=== PATIENT | female | born 1985 | race Caucasian/White ===

== ENCOUNTER 2018-03-09 10:47 | Day surgery (SDC) | payer OTHER ==
[~2018-03-09] VITALS: Ht 162.6 cm; Wt 112.2 kg
[~2018-03-09 10:47] MED LIST: BUSP5 PO; Cipro500 MG PO; METF500 PO; METF500C PO; Mirena1 EACH; SERT100; [UNRECOGNIZED DRUG - OTHER]
== END 2018-03-09 13:21 | disposition home or self-care (01) ==
LOC: ORSCSDS 10:47
PROVIDERS: Obstetrics & Gynecology
PROC: 0U574ZZ Destruction of Bilateral Fallopian Tubes, Percutaneous Endoscopic Approach (ICD-10-PCS; principal; 2018-03-09 12:00)
PROC: 0UPD7HZ Removal of Contraceptive Device from Uterus and Cervix, Via Natural or Artificial Opening (ICD-10-PCS; principal; 2018-03-09 12:00)
DX: Z30.2 Encounter for sterilization (principal); E28.2 Polycystic ovarian syndrome; Z87.891 Personal history of nicotine dependence; E16.1 Other hypoglycemia
CPT/HCPCS: J0171; J1100; J2250; J2405; J2710; J3010; J7120

== ENCOUNTER → 2019-02-28 | Outpatient (CLI) | payer BC, OTHER ==
[~2019-02-28] MED LIST changes: +Norco 5-325 Ta1 EACH PO; +Zofran4 MG PO
[2019-03-01 16:53] LABS: U Amphetamine Screen Not Detected; U Barbituate Screen Not Detected; U Benzodiazapine Screen Not Detected; U Cannabinoids Screen Not Detected; U Cocaine Screen Not Detected; U Methadone Screen Not Detected; U Methamphetamine Screen Not Detected; U Opiates Screen Not Detected; U Phencyclidine Screen Not Detected
[2019-03-01 16:54] LABS: U Buprenorphine Screen Not Detected; U Oxycodone Screen Not Detected; U Propoxyphene Screen Not Detected
== END | disposition home or self-care (01) ==
LOC: LAB SHORT 15:47 → LAB 15:47 → LAB SHORT 03-01 15:47
PROVIDERS: Family Medicine
DX: Z51.81 Encounter for therapeutic drug level monitoring (principal); Z79.899 Other long term (current) drug therapy

== ENCOUNTER 2019-06-12 05:09 | Emergency (ER) | payer BC, OTHER ==
[~2019-06-12] VITALS: Ht 162.6 cm; Wt 99.8 kg
[2019-06-12] MEDS ORDERED: QUET25 PO (05:30)
[2019-06-12] MEDS ORDERED: Amphetamine Sal20 MG PO (05:30)
[2019-06-12 05:48] LABS: Source, Urine Clean Catch
[2019-06-12 05:57] LABS: Bilirubin, Urine Neg (Neg); Blood, Urine 5+ (Neg); Glucose Qualitative, Urine Neg (Neg); Ketones, Urine Neg (Neg); Leukocyte Esterase, Urine 2+ (Neg); Nitrite, Urine Neg (Neg); Protein, Urine 2+ (Neg); Urobilinogen, Urine NORM (Normal)
[2019-06-12 05:59] LABS: BASOPHILS ABSOLUTE AUTO 0.07 K/mm3 (0.00-0.23); BASOPHILS PERCENT AUTO 1 % (0-2); EOSINOPHILS ABSOLUTE AUTO 0.03 K/mm3 (0.00-0.68); EOSINOPHILS PERCENT AUTO 0 % (0-6); Hematocrit 39.4 % (33.0-51.0); Hemoglobin 13.3 g/dL (11.5-16.0); IMMATURE GRAN ABSOLUTE AUTO 0.05 K/mm3 (0.00-0.10); IMMATURE GRAN PERCENT AUTO 0 % (0-1); LYMPHOCYTES ABSOLUTE AUTO 1.57 K/mm3 (0.84-5.20); LYMPHOCYTES PERCENT AUTO 11 % (21-46); MONOCYTES ABSOLUTE AUTO 0.59 K/mm3 (0.16-1.47); MONOCYTES PERCENT AUTO 4 % (4-13); Mean Corpuscular HGB Conc 33.8 g/dL (31.5-36.5); Mean Corpuscular Volume 86 fL (80-100); Mean Platelet Volume 10.2 fL (9.1-12.4); NEUTROPHILS ABSOLUTE AUTO 12.58 K/mm3 (1.96-9.15); NEUTROPHILS PERCENT AUTO 85 % (41-73); Platelet Count 322 K/mm3 (150-400); RDW Coefficient Variation 12.6 % (11.7-14.2); RDW Standard Deviation 38.6 fL (35.1-46.3); Red Blood Cell Count 4.59 M/mm3 (3.80-5.20); White Blood Cell Count 14.89 K/mm3 (4.00-11.30)
[2019-06-12 06:08] LABS: Appearance, Urine Hazy (Clear); Color, Urine Yellow (P-Yellow)
[2019-06-12 06:10] LABS: Red Blood Cells, Urine 25-50 /hpf (0-2)
[2019-06-12 06:12] LABS: Bacteria Rare /hpf; Squamous Epithelial Cells Few /hpf (Few)
[2019-06-12 06:13] LABS: Calcium Oxalate Crystals Rare /hpf
[2019-06-12 06:17] LABS: Alanine Aminotransfer (ALT/SGP 26 U/L (12-78); Alk Phos 71 U/L (50-136); Anion Gap 8 mmol/L (6-16); Aspartate Aminotrans (AST/SGOT 13 U/L (12-37); Bilirubin, Total 0.7 mg/dL (0.1-1.0); Blood Urea Nitrogen 8 mg/dL (8-24); Bun/Creatinine Ratio 9.7 (12.0-20.0); CO2, Blood 21 mmol/L (21-32); Calcium, Blood 8.8 mg/dL (8.5-10.1); Chloride, Blood 108 mmol/L (98-108); Creatinine, Blood 0.83 mg/dL (0.40-1.00); Glomerular Filtration Rate >60 (60-); Glucose, Blood 129 mg/dL (70-99); Potassium, Blood 3.8 mmol/L (3.5-5.5); Sodium, Blood 137 mmol/L (136-145)
== END 2019-06-12 10:35 | disposition short-term general hospital (02) ==
LOC: ER 05:09
PROVIDERS: Emergency Medicine
DX: N13.2 Hydronephrosis with renal and ureteral calculous obstruction (principal); Z91.018 Allergy to other foods; Z79.899 Other long term (current) drug therapy; Z79.84 Long term (current) use of oral hypoglycemic drugs; Z87.891 Personal history of nicotine dependence
CPT/HCPCS: 74176; 80053; 81001; 81025; 83605; 85025; 87086; 96361; 96365; 96375; 99285-25; J0696; J1885; J2270; J2405; J7030

== ENCOUNTER → 2019-11-20 | Outpatient (CLI) | payer BC ==
[~2019-11-20] MED LIST changes: +Amphetamine Sal20 MG PO; +QUET25 PO
[2019-11-20 11:52] LABS: Bilirubin, Urine Neg (Neg); Blood, Urine 4+ (Neg); Glucose Qualitative, Urine Neg (Neg); Ketones, Urine 1+ (Neg); Leukocyte Esterase, Urine 3+ (Neg); Nitrite, Urine Neg (Neg); Protein, Urine 2+ (Neg); Urobilinogen, Urine NORM (Normal)
[2019-11-20 12:06] LABS: Appearance, Urine Hazy (Clear); Bacteria Mod /hpf; Color, Urine Yellow (P-Yellow); Red Blood Cells, Urine TNTC /hpf (0-2); Source, Urine Clean Catch; Squamous Epithelial Cells Many /hpf (Few); White Blood Cells, Urine TNTC /hpf (0-5)
[2019-11-20 12:07] LABS: Mucus Light (0-Heavy)
== END | disposition home or self-care (01) ==
LOC: LAB SHORT 11:35 → LAB 11:35
PROVIDERS: Family Medicine
DX: N39.0 Urinary tract infection, site not specified (principal)
CPT/HCPCS: 81001; 87077; 87086; 87186

== ENCOUNTER → 2020-01-18 | Outpatient (CLI) | payer BC ==
[2020-01-18 08:26] LABS: Source, Urine Clean Catch
[2020-01-18 08:51] LABS: Bilirubin, Urine Neg (Neg); Blood, Urine 3+ (Neg); Glucose Qualitative, Urine Neg (Neg); Ketones, Urine Neg (Neg); Leukocyte Esterase, Urine 2+ (Neg); Nitrite, Urine Neg (Neg); Protein, Urine 2+ (Neg); Specific Gravity, Urine 1.015 (1.003-1.022); Urobilinogen, Urine NORM (Normal)
[2020-01-18 08:58] LABS: Appearance, Urine Clear (Clear); Color, Urine Yellow (P-Yellow)
[2020-01-18 08:59] LABS: Squamous Epithelial Cells Mod /hpf (Few)
[2020-01-18 09:01] LABS: Bacteria Few /hpf; Mucus Light (0-Heavy)
== END ==
LOC: OLS 08:24 → LAB SHORT 08:24
PROVIDERS: Family Medicine
DX: N20.0 Calculus of kidney (principal); N39.0 Urinary tract infection, site not specified
CPT/HCPCS: 81001; 87086

== ENCOUNTER → 2020-05-20 | Outpatient (CLI) | payer BC ==
[2020-05-20 11:40] LABS: Source, Urine Clean Catch
[2020-05-20 12:21] LABS: Bilirubin, Urine Neg (Neg); Blood, Urine 5+ (Neg); Glucose Qualitative, Urine Neg (Neg); Ketones, Urine Neg (Neg); Leukocyte Esterase, Urine 3+ (Neg); Nitrite, Urine Neg (Neg); Protein, Urine 2+ (Neg); Specific Gravity, Urine 1.025 (1.003-1.022); Urobilinogen, Urine NORM (Normal)
[2020-05-20 12:24] LABS: Appearance, Urine Hazy (Clear); Color, Urine Yellow (P-Yellow)
[2020-05-20 12:26] LABS: Bacteria Many /hpf; Red Blood Cells, Urine TNTC /hpf (0-2); Squamous Epithelial Cells Mod /hpf (Few); White Blood Cells, Urine TNTC /hpf (0-5)
== END | disposition home or self-care (01) ==
LOC: LAB SHORT 11:38 → LAB 11:38 → LAB FUT 01-22 13:10
PROVIDERS: Family Medicine
DX: N39.0 Urinary tract infection, site not specified (principal)
CPT/HCPCS: 81001; 87077; 87086; 87186

== ENCOUNTER → 2020-10-07 | Outpatient (CLI) | payer BC ==
[2020-10-07 19:29] LABS: U Amphetamine Screen DETECTED; U Barbituate Screen Not Detected; U Benzodiazapine Screen Not Detected; U Buprenorphine Screen Not Detected; U Cannabinoids Screen Not Detected; U Cocaine Screen Not Detected; U Methadone Screen Not Detected; U Methamphetamine Screen Not Detected; U Opiates Screen Not Detected; U Oxycodone Screen Not Detected; U Phencyclidine Screen Not Detected; U Propoxyphene Screen Not Detected
== END | disposition home or self-care (01) ==
LOC: LAB SHORT 17:43 → LAB 17:43
PROVIDERS: Family Medicine
DX: Z51.81 Encounter for therapeutic drug level monitoring (principal); Z79.891 Long term (current) use of opiate analgesic

== ENCOUNTER → 2021-04-07 | Outpatient (CLI) | payer BC, OTHER ==
[2021-04-07 13:39] LABS: Source, Urine Clean Catch
[2021-04-07 14:18] LABS: Bilirubin, Urine Neg (Neg); Blood, Urine 1+ (Neg); Glucose Qualitative, Urine Neg (Neg); Ketones, Urine Neg (Neg); Leukocyte Esterase, Urine 3+ (Neg); Nitrite, Urine Neg (Neg); Protein, Urine Neg (Neg); Specific Gravity, Urine 1.015 (1.003-1.022); Urobilinogen, Urine NORM (Normal); pH, Urine 6.5 (5.0-8.0)
[2021-04-07 14:37] LABS: Appearance, Urine Hazy (Clear); Color, Urine Pale Yellow (P-Yellow)
[2021-04-07 14:38] LABS: Bacteria Many /hpf; Red Blood Cells, Urine 0-2 /hpf (0-2); Squamous Epithelial Cells Few /hpf (Few)
== END | disposition home or self-care (01) ==
LOC: LAB FUT 12-18 07:25 → LAB 13:37 → LAB SHORT 13:37
PROVIDERS: Family Medicine
DX: N15.9 Renal tubulo-interstitial disease, unspecified (principal)
CPT/HCPCS: 81001; 87077; 87086; 87186

== ENCOUNTER → 2021-05-21 | Outpatient (CLI) | payer BC, OTHER ==
[2021-05-21 09:59] LABS: Source, Urine Clean Catch
[2021-05-21 10:38] LABS: Appearance, Urine Clear (Clear); Bilirubin, Urine Neg (Neg); Blood, Urine 2+ (Neg); Color, Urine Yellow (P-Yellow); Glucose Qualitative, Urine Neg (Neg); Ketones, Urine Neg (Neg); Leukocyte Esterase, Urine 1+ (Neg); Nitrite, Urine Neg (Neg); Protein, Urine Neg (Neg); Urobilinogen, Urine NORM (Normal)
[2021-05-21 11:00] LABS: Squamous Epithelial Cells Mod /hpf (Few)
[2021-05-21 11:01] LABS: Bacteria Few /hpf
== END | disposition home or self-care (01) ==
LOC: LAB SHORT 09:56 → LAB 09:56
PROVIDERS: Family Medicine
DX: N39.0 Urinary tract infection, site not specified (principal)
CPT/HCPCS: 81001; 87086

== ENCOUNTER → 2021-08-07 | Outpatient (CLI) | payer BC, OTHER ==
[2021-08-07 12:43] LABS: Source, Urine Clean Catch
[2021-08-07 13:41] LABS: Appearance, Urine Clear (Clear); Bilirubin, Urine Neg (Neg); Blood, Urine 2+ (Neg); Color, Urine Yellow (P-Yellow); Glucose Qualitative, Urine Neg (Neg); Ketones, Urine Neg (Neg); Leukocyte Esterase, Urine 3+ (Neg); Nitrite, Urine Neg (Neg); Protein, Urine 1+ (Neg); Specific Gravity, Urine 1.015 (1.003-1.022); Urobilinogen, Urine NORM (Normal)
[2021-08-07 14:16] LABS: Bacteria Mod /hpf; Mucus Light (0-Heavy)
[2021-08-07 14:17] LABS: Amorphous Mod (0-Heavy); Squamous Epithelial Cells Mod /hpf (Few); Trichomonas Few /hpf
== END | disposition home or self-care (01) ==
LOC: LAB 12:40 → LAB SHORT 12:40
PROVIDERS: Family Medicine
DX: N39.0 Urinary tract infection, site not specified (principal)
CPT/HCPCS: 81001; 87086

== ENCOUNTER → 2021-11-09 | Outpatient (CLI) | payer BC, OTHER ==
[~2021-11-09] MED LIST changes: +Bactrim Ds Tab1 EACH PO; +OXYC5 PO
== END | disposition home or self-care (01) ==
LOC: LAB SHORT 07:27 → LAB 07:27
DX: N20.0 Calculus of kidney (principal)
CPT/HCPCS: 81050

== ENCOUNTER → 2022-02-10 | Outpatient (CLI) | payer BC, OTHER ==
[2022-02-10 18:09] LABS: U Amphetamine Screen Not Detected; U Barbituate Screen Not Detected; U Benzodiazapine Screen Not Detected; U Buprenorphine Screen Not Detected; U Cannabinoids Screen Not Detected; U Cocaine Screen Not Detected; U Methadone Screen Not Detected; U Methamphetamine Screen Not Detected; U Opiates Screen Not Detected; U Oxycodone Screen Not Detected; U Phencyclidine Screen Not Detected; U Propoxyphene Screen Not Detected
== END | disposition home or self-care (01) ==
LOC: LAB SHORT 13:21
PROVIDERS: Family Medicine
DX: Z51.81 Encounter for therapeutic drug level monitoring (principal); Z79.891 Long term (current) use of opiate analgesic

== ENCOUNTER 2023-07-18 17:58 | Inpatient (IN) | payer OTHER ==
[~2023-07-18] VITALS: Ht 160 cm; Wt 111.2 kg
[2023-07-18 18:19] LABS: Source, Urine Clean Catch
[2023-07-18 18:23] LABS: Appearance, Urine Cloudy (Clear); Bilirubin, Urine Neg (Neg); Blood, Urine 4+ (Neg); Color, Urine Yellow (P-Yellow); Glucose Qualitative, Urine Neg (Neg); Ketones, Urine Neg (Neg); Leukocyte Esterase, Urine 3+ (Neg); Nitrite, Urine Neg (Neg); Protein, Urine 3+ (Neg); Urobilinogen, Urine NORM (Normal)
[2023-07-18 18:35] LABS: White Blood Cells, Urine TNTC /hpf (0-5)
[2023-07-18 18:37] LABS: Squamous Epithelial Cells Not Seen /hpf (Few)
[2023-07-18 18:38] LABS: Bacteria Few /hpf
[2023-07-18 18:41] LABS: BASOPHILS ABSOLUTE AUTO 0.06 K/mm3 (0.00-0.23); BASOPHILS PERCENT AUTO 1 % (0-2); EOSINOPHILS ABSOLUTE AUTO 0.16 K/mm3 (0.00-0.68); EOSINOPHILS PERCENT AUTO 1 % (0-6); Hematocrit 37.3 % (33.0-51.0); Hemoglobin 13.3 g/dL (11.5-16.0); IMMATURE GRAN ABSOLUTE AUTO 0.03 K/mm3 (0.00-0.10); IMMATURE GRAN PERCENT AUTO 0 % (0-1); LYMPHOCYTES PERCENT AUTO 24 % (21-46); MONOCYTES ABSOLUTE AUTO 0.67 K/mm3 (0.16-1.47); MONOCYTES PERCENT AUTO 5 % (4-13); Mean Corpuscular HGB 30.4 pg (26.0-34.0); Mean Corpuscular HGB Conc 35.7 g/dL (31.5-36.5); Mean Corpuscular Volume 85 fL (80-100); Mean Platelet Volume 10.2 fL (9.1-12.4); NEUTROPHILS ABSOLUTE AUTO 9.21 K/mm3 (1.96-9.15); NEUTROPHILS PERCENT AUTO 69 % (41-73); Platelet Count 259 K/mm3 (150-400); RDW Coefficient Variation 11.5 % (11.7-14.2); RDW Standard Deviation 35.3 fL (35.1-46.3); Red Blood Cell Count 4.37 M/mm3 (3.80-5.20); White Blood Cell Count 13.33 K/mm3 (4.00-11.30)
[2023-07-18 19:04] LABS: Albumin, Blood 3.5 g/dL (3.4-5.0); Albumin/Globulin Ratio 0.9 (0.8-1.8); Bilirubin, Total 0.5 mg/dL (0.1-1.0); Bun/Creatinine Ratio 14.9 (12.0-20.0); Calcium, Blood 9.3 mg/dL (8.5-10.1); Creatinine, Blood 0.61 mg/dL (0.40-1.00); Globulin, Blood 3.9 g/dL (2.2-4.0); Potassium, Blood 3.8 mmol/L (3.5-5.5); Total Protein, Blood 7.4 g/dL (6.4-8.2)
[2023-07-18] MEDS ORDERED: DASETTA 1-35-21 EACH PO (19:06)
[2023-07-18 21:47] LABS: Influenza A, PCR NEGATIVE (NEGATIVE); Influenza B, PCR NEGATIVE (NEGATIVE); Resp Syncytial Virus, PCR NEGATIVE (NEGATIVE); SARS-Cov-2 (COVID-19) PCR, MMC NEGATIVE (NEGATIVE)
[2023-07-18 23:15] VITALS: BP 138/96
--- NOTE | 2023-07-18 23:47 | NUR ---
ADMIT PT ADMITTED. ORIENTED TO ROOM. CALL LIGHT IN REACH. DENIES SMOKING OR HAVING IGNITION RISK. IV FLUIDS STARTED. DENIES NEED FOR PAIN MEDS AT THIS TIME. PT ENCOURAGED TO CALL STAFF AFTER USING THE BATHROOM TO MEARURE URINE OUTPUT. DENIES OTHER NEEDS AT THIS TIME. FAX SENT TO [facility] [place]. PT INFORMED SHE IS NPO AT MIDNIGHT.
[2023-07-19] VITALS (9 sets, daily range): BP systolic 105–168; BP diastolic 56–95
[2023-07-19 05:15] LABS: BASOPHILS ABSOLUTE AUTO 0.05 K/mm3 (0.00-0.23); BASOPHILS PERCENT AUTO 1 % (0-2); EOSINOPHILS PERCENT AUTO 1 % (0-6); Hematocrit 34.3 % (33.0-51.0); IMMATURE GRAN ABSOLUTE AUTO 0.02 K/mm3 (0.00-0.10); IMMATURE GRAN PERCENT AUTO 0 % (0-1); LYMPHOCYTES ABSOLUTE AUTO 2.89 K/mm3 (0.84-5.20); LYMPHOCYTES PERCENT AUTO 36 % (21-46); MONOCYTES ABSOLUTE AUTO 0.48 K/mm3 (0.16-1.47); MONOCYTES PERCENT AUTO 6 % (4-13); Mean Corpuscular HGB 30.3 pg (26.0-34.0); Mean Corpuscular Volume 87 fL (80-100); Mean Platelet Volume 10.4 fL (9.1-12.4); NEUTROPHILS ABSOLUTE AUTO 4.61 K/mm3 (1.96-9.15); NEUTROPHILS PERCENT AUTO 57 % (41-73); Platelet Count 239 K/mm3 (150-400); RDW Coefficient Variation 11.6 % (11.7-14.2); RDW Standard Deviation 36.8 fL (35.1-46.3); Red Blood Cell Count 3.96 M/mm3 (3.80-5.20); White Blood Cell Count 8.15 K/mm3 (4.00-11.30)
[2023-07-19 05:36] LABS: Albumin, Blood 3.3 g/dL (3.4-5.0); Albumin/Globulin Ratio 0.9 (0.8-1.8); Bilirubin, Total 0.7 mg/dL (0.1-1.0); Bun/Creatinine Ratio 11.4 (12.0-20.0); Calcium, Blood 8.4 mg/dL (8.5-10.1); Creatinine, Blood 0.7 mg/dL (0.40-1.00); Globulin, Blood 3.5 g/dL (2.2-4.0); Potassium, Blood 3.8 mmol/L (3.5-5.5); Total Protein, Blood 6.8 g/dL (6.4-8.2)
--- NOTE | 2023-07-19 06:09 | NUR ---
SHIFT SUMMARY ADMITTED OVERNIGHT. IV FLUIDS RUNNING X1 BAG. MEDICATED FOR PAIN ONCE SINCE ADMISSION WITH GOOD RELIEF DOWN TO 2/10 ON R FLANK. NPO SINCE MIDNIGHT FOR POSSIBLE PROCEDURE WITH DR. DOLAN TODAY FOR NEPHROSTOMY TUBE PLACEMENT. PTS UROLOGY IN [place] ALSO AWARE OF HOSPITALIZATION. [place] BED UNAVAILABLE AT THIS TIME, HOWEVER. NO OTHER ACUTE CHANGES IN ASSESSMENT AT THIS TIME. VS REVIEWED. CALL LIGHT IN REACH. DENIES OTHER NEEDS AT THIS TIMES. NO OTHER ACUTE CHANGES IN ASSESSMENT AT THIS TIME. VS REVIEWED. CALL LIGHT IN REACH. PT RESTING IN BED. DENIES OTHER NEEDS AT THIS TIME.
--- NOTE | 2023-07-20 04:32 | NUR ---
REPORT RECEIVED VERIFIED PT A/O AT BEDSIDE. C/O PAIN TO RIGHT SIDE WHICH I TREATED WITH TORADOL, PT STATED IT WORKED FOR A WHILE BUT WAS STILL HAVING PAIN SO I MEDICATED PER JAN. NAUSEA COVERED PER JAN, NO VOMITING. PT INDEPENDANT IN RM WILL CALL IF NEEDING ASSISTENCE. CONT MONITORING
[2023-07-20 05:04] VITALS: BP 147/94
[2023-07-20 05:42] LABS: BASOPHILS ABSOLUTE AUTO 0.03 K/mm3 (0.00-0.23); BASOPHILS PERCENT AUTO 0 % (0-2); EOSINOPHILS ABSOLUTE AUTO 0.13 K/mm3 (0.00-0.68); EOSINOPHILS PERCENT AUTO 2 % (0-6); Hematocrit 33.6 % (33.0-51.0); Hemoglobin 11.6 g/dL (11.5-16.0); IMMATURE GRAN ABSOLUTE AUTO 0.01 K/mm3 (0.00-0.10); IMMATURE GRAN PERCENT AUTO 0 % (0-1); LYMPHOCYTES ABSOLUTE AUTO 2.71 K/mm3 (0.84-5.20); LYMPHOCYTES PERCENT AUTO 35 % (21-46); MONOCYTES ABSOLUTE AUTO 0.46 K/mm3 (0.16-1.47); MONOCYTES PERCENT AUTO 6 % (4-13); Mean Corpuscular HGB 30.2 pg (26.0-34.0); Mean Corpuscular HGB Conc 34.5 g/dL (31.5-36.5); Mean Corpuscular Volume 88 fL (80-100); Mean Platelet Volume 10.4 fL (9.1-12.4); NEUTROPHILS ABSOLUTE AUTO 4.42 K/mm3 (1.96-9.15); NEUTROPHILS PERCENT AUTO 57 % (41-73); Platelet Count 232 K/mm3 (150-400); RDW Coefficient Variation 11.8 % (11.7-14.2); RDW Standard Deviation 37.4 fL (35.1-46.3); Red Blood Cell Count 3.84 M/mm3 (3.80-5.20); White Blood Cell Count 7.76 K/mm3 (4.00-11.30)
[2023-07-20 06:07] LABS: Albumin, Blood 3.1 g/dL (3.4-5.0); Anion Gap 5 mmol/L (6-16); Blood Urea Nitrogen 10 mg/dL (8-24); Bun/Creatinine Ratio 14.2 (12.0-20.0); CO2, Blood 24 mmol/L (21-32); Calcium, Blood 8.3 mg/dL (8.5-10.1); Chloride, Blood 110 mmol/L (98-108); Creatinine, Blood 0.71 mg/dL (0.40-1.00); Glomerular Filtration Rate 110 (60-); Glucose, Blood 91 mg/dL (70-99); Phosphorus, Blood 3.3 mg/dL (2.5-4.9); Potassium, Blood 4.3 mmol/L (3.5-5.5); Sodium, Blood 139 mmol/L (136-145)
[2023-07-20 07:18] VITALS: BP 122/63
--- NOTE | 2023-07-20 07:30 | NUR ---
ASSUMED CARE: PT RESTING IN BED WATCHING TV. SIGNIFICANT OTHER AT BEDSIDE. NEPHROSTOMY TO RIGHT FLANK SECURE. STATES TENDER AT TIMES. DENIES OTHER NEEDS OR CONCERNS AT THIS TIME.
--- NOTE | 2023-07-20 12:53 | NUR ---
DR POZO INSTRUCTED THIS RN TO CALL DR DOLAN TO FIND OUT DC PLANS. CALL TO CLINICAL RN MANAGER AND NURSE STATED SHE WOULD RELAY MESSAGE FOR HIM TO ADDRESS PT'S DC PLANS AFTER CURRENT PROCEDURE
--- NOTE | 2023-07-20 14:23 | NUR ---
CALL TO DR DOLAN'S CELL PHONE, MESSAGE LEFT ON VOICE MAIL.
--- NOTE | 2023-07-20 14:39 | NUR ---
REPORTED TO DR POZO THAT 2 ATTEMPTS HAVE BEEN MADE TO CONTACT DR DOLAN. DR OVALLES SHE SENT HIM A MESSAGE WELL. DR OVALLES WILL LIKELY DISCHARGE PT
[2023-07-20] MEDS ORDERED: CEPH500 PO (15:18)
[2023-07-20] MEDS ORDERED: ONDA4ODT MM (15:19)
[2023-07-20] MEDS ORDERED: OXYC5 PO (15:19)
[2023-07-20] MEDS ORDERED: LACT PO (15:19)
[2023-07-20 15:20] VITALS: BP 135/67
--- NOTE | 2023-07-20 15:49 | NUR ---
PT GIVEN INSTRUCTIONS REGARDING MEDICATIONS, FOLLOW UP APPOINTMENTS, AND SITE CARE OF NEPHROSTOMY TUBE UNTIL FOLLOW UP CAN OCCUR. PT IN MIDST OF GETTING CONFIRMED DATE WITH UROLOGY. IV DC'D WNL. DENIED FURTHER NEEDS OR CONCERNS. AMBULATORY UPON DISCHARGE.
== END 2023-07-20 15:46 | disposition home or self-care (01) | DRG 690 ==
LOC: ER 17:58 → MEDS 17:59
PROVIDERS: Emergency Medicine; Internal Medicine; Student in an Organized Health Care Education/Training Program; ADMIT Hospitalist
PROC: 0T763DZ Dilation of Right Ureter with Intraluminal Device, Percutaneous Approach (ICD-10-PCS; principal; 2023-07-19)
PROC: 0T9330Z Drainage of Right Kidney Pelvis with Drainage Device, Percutaneous Approach (ICD-10-PCS; 2023-07-19)
PROC: BT1D1ZZ Fluoroscopy of Right Kidney, Ureter and Bladder using Low Osmolar Contrast (ICD-10-PCS; 2023-07-19)
DX: N13.6 Pyonephrosis (principal); Z68.41 Body mass index [BMI] 40.0-44.9, adult; E66.9 Obesity, unspecified; B95.1 Streptococcus, group B, as the cause of diseases classified elsewhere; Z20.822 Contact with and (suspected) exposure to COVID-19; Z87.442 Personal history of urinary calculi; Z90.49 Acquired absence of other specified parts of digestive tract; Z87.891 Personal history of nicotine dependence; Z91.018 Allergy to other foods; Z79.891 Long term (current) use of opiate analgesic; Z79.899 Other long term (current) drug therapy; Z98.890 Other specified postprocedural states
CPT/HCPCS: 0241U; 36415; 50695; 74177; 76937; 80053; 80069; 81001; 81025; 83690; 85025; 87086; 87147; 96365-59; 96375; 99152; 99153; 99285-25; A9270; C1769; C1894; C2617; G0378; J0696; J1885; J2250; J2405; J3010; J7030; J7040; Q9967

== ENCOUNTER 2023-07-30 02:08 | Inpatient (IN) | payer OTHER ==
[~2023-07-30] VITALS: Ht 160 cm; Wt 110.1 kg
[~2023-07-30 02:08] MED LIST changes: +CEPH500 PO; +DASETTA 1-35-21 EACH PO; +LACT PO; +ONDA4ODT MM
[2023-07-30 03:19] LABS: BASOPHILS ABSOLUTE AUTO 0.02 K/mm3 (0.00-0.23); BASOPHILS PERCENT AUTO 0 % (0-2); EOSINOPHILS ABSOLUTE AUTO 0.02 K/mm3 (0.00-0.68); EOSINOPHILS PERCENT AUTO 0 % (0-6); Hematocrit 36.3 % (33.0-51.0); Hemoglobin 12.4 g/dL (11.5-16.0); IMMATURE GRAN ABSOLUTE AUTO 0.06 K/mm3 (0.00-0.10); IMMATURE GRAN PERCENT AUTO 0 % (0-1); LYMPHOCYTES ABSOLUTE AUTO 0.77 K/mm3 (0.84-5.20); LYMPHOCYTES PERCENT AUTO 5 % (21-46); MONOCYTES ABSOLUTE AUTO 0.61 K/mm3 (0.16-1.47); MONOCYTES PERCENT AUTO 4 % (4-13); Mean Corpuscular HGB Conc 34.2 g/dL (31.5-36.5); Mean Corpuscular Volume 88 fL (80-100); Mean Platelet Volume 10.1 fL (9.1-12.4); NEUTROPHILS ABSOLUTE AUTO 13.87 K/mm3 (1.96-9.15); NEUTROPHILS PERCENT AUTO 90 % (41-73); Platelet Count 235 K/mm3 (150-400); RDW Coefficient Variation 11.8 % (11.7-14.2); RDW Standard Deviation 37.5 fL (35.1-46.3); Red Blood Cell Count 4.14 M/mm3 (3.80-5.20); White Blood Cell Count 15.35 K/mm3 (4.00-11.30)
[2023-07-30 03:40] LABS: Albumin, Blood 3.4 g/dL (3.4-5.0); Albumin/Globulin Ratio 0.8 (0.8-1.8); Bilirubin, Total 0.6 mg/dL (0.1-1.0); Bun/Creatinine Ratio 14.1 (12.0-20.0); Calcium, Blood 8.9 mg/dL (8.5-10.1); Creatinine, Blood 0.85 mg/dL (0.40-1.00); Potassium, Blood 4.2 mmol/L (3.5-5.5); Total Protein, Blood 7.4 g/dL (6.4-8.2)
[2023-07-30 07:30] LABS: Source, Urine Clean Catch
[2023-07-30 07:50] LABS: Appearance, Urine Clear (Clear); Bilirubin, Urine Neg (Neg); Blood, Urine 5+ (Neg); Color, Urine Amber (P-Yellow); Glucose Qualitative, Urine Neg (Neg); Ketones, Urine Neg (Neg); Leukocyte Esterase, Urine 2+ (Neg); Nitrite, Urine Pos (Neg); Protein, Urine 2+ (Neg); Urobilinogen, Urine NORM (Normal)
[2023-07-30 07:56] LABS: Squamous Epithelial Cells Mod /hpf (Few)
[2023-07-30 07:57] LABS: Bacteria Few /hpf; Mucus Light (0-Heavy); Red Blood Cells, Urine 25-50 /hpf (0-2)
[2023-07-30 11:36] VITALS: BP 105/57
[2023-07-30 14:51] VITALS: BP 120/62
[2023-07-30 15:20] VITALS: BP 118/59
--- NOTE | 2023-07-30 17:38 | NUR ---
SHIFT SUMMARY: PATIENT A&OX4. PLEASANT AND COOPERATIVE c CARE. NO TELE. DENIES CP/PRESSURE, SOB, N/V AND DIZZINESS. FEBRILE TEMP RANGES 99.8-102.7 THIS SHIFT. MEDICATED c X1 PO TYLENOL, X1 PO IBUPROFEN, APPLIED ICE PACK TO BACK OF NECK, BILAT ARMPIT GROIN AND CONTINOUS PORTABLE FAN c MINIMAL EFFECT. PATIENT REPORTS BODY ACHES 7/10, MEDICATED X1 c PO OXYCODONE c GOOD RELIEF. R NEPHROSTOMY CONNECTED TO LEG BAG DRAINING ARIEL COLOR TO GRAVITY c THE TOTAL URINE OUTPUT OF 550 MLS AND 100 MLS URINE OUTPUT TO L KIDNEY THIS SHIFT. PATIENT AMBULATES IN ROOM INDEPENDENTLY. VITAL SIGNS REVIEWED. IV TO LAC INFUSING NS AT 150 MLS/HR. PATIENT HAD ADEQUATE PO INTAKE. CALL LIGHT IN REACH.
[2023-07-30 19:55] VITALS: BP 105/57
[2023-07-31 04:46] VITALS: BP 100/52
[2023-07-31 05:35] LABS: BASOPHILS ABSOLUTE AUTO 0.03 K/mm3 (0.00-0.23); BASOPHILS PERCENT AUTO 0 % (0-2); EOSINOPHILS ABSOLUTE AUTO 0.05 K/mm3 (0.00-0.68); EOSINOPHILS PERCENT AUTO 0 % (0-6); Hematocrit 32.5 % (33.0-51.0); Hemoglobin 11.3 g/dL (11.5-16.0); IMMATURE GRAN ABSOLUTE AUTO 0.06 K/mm3 (0.00-0.10); IMMATURE GRAN PERCENT AUTO 1 % (0-1); LYMPHOCYTES ABSOLUTE AUTO 0.51 K/mm3 (0.84-5.20); LYMPHOCYTES PERCENT AUTO 4 % (21-46); MONOCYTES ABSOLUTE AUTO 0.57 K/mm3 (0.16-1.47); MONOCYTES PERCENT AUTO 5 % (4-13); Mean Corpuscular HGB 30.6 pg (26.0-34.0); Mean Corpuscular HGB Conc 34.8 g/dL (31.5-36.5); Mean Corpuscular Volume 88 fL (80-100); Mean Platelet Volume 10.3 fL (9.1-12.4); NEUTROPHILS ABSOLUTE AUTO 11.53 K/mm3 (1.96-9.15); NEUTROPHILS PERCENT AUTO 90 % (41-73); Platelet Count 174 K/mm3 (150-400); RDW Coefficient Variation 12.2 % (11.7-14.2); RDW Standard Deviation 39.1 fL (35.1-46.3); Red Blood Cell Count 3.69 M/mm3 (3.80-5.20); White Blood Cell Count 12.75 K/mm3 (4.00-11.30)
[2023-07-31 06:03] LABS: Albumin, Blood 2.6 g/dL (3.4-5.0); Anion Gap 6 mmol/L (6-16); Blood Urea Nitrogen 12 mg/dL (8-24); Bun/Creatinine Ratio 12.1 (12.0-20.0); CO2, Blood 24 mmol/L (21-32); Chloride, Blood 108 mmol/L (98-108); Creatinine, Blood 0.99 mg/dL (0.40-1.00); Glomerular Filtration Rate 74 (60-); Glucose, Blood 132 mg/dL (70-99); Magnesium, Blood 1.6 mg/dL (1.6-2.4); Phosphorus, Blood 2.8 mg/dL (2.5-4.9); Potassium, Blood 3.7 mmol/L (3.5-5.5); Sodium, Blood 138 mmol/L (136-145)
--- NOTE | 2023-07-31 06:41 | NUR ---
SHIFT SUMMARY PATIENT A/Ox4, BRIGHT, PLEASANT AFFECT. C/O MODERATE RIGHT ABD PAIN, MEDICATED PER MAR WITH GOOD RESULT. VSS, SPO2 MAINTAINED ON RA. LOW GRADE FEVER RESOLVED FROM EARLIER ON DAY SHIFT. INDEPENDANT IN ROOM. NO ACUTE CHANGES NOTED OVERNIGHT. BED IN LOW POSITION, CALL LIGHT WITHIN REACH.
[2023-07-31 07:14] VITALS: BP 95/47
[2023-07-31 08:07] VITALS: BP 117/103
[2023-07-31 16:17] VITALS: BP 102/54
--- NOTE | 2023-07-31 17:41 | NUR ---
SHIFT SUMMARY: PATIENT A&OX4. PLEASANT AND COOPERATIVE c CARE. USES CALL LIGHT APPROPRIATELY AND ABLE TO MAKE NEEDS KNOWN. PATIENT WAS FEBRILE c TEMP RANGES 99.1-103.0 LASTS ABOUT FOUR HRS, MEDICATED c PRN PO TYLENOL, IBUPROFEN, ICE PACKS, AND CONTNOUS PORTABLE FAN AT BESIDE c GOOD EFFECT. AT AROUND 1300'S TEMP FINALLY DOWN AND HAS BEEN CONSISTENT IN THE 98.0 DEGREE RANGE. PATIENT REPORTS, NAUSEA BUT NO VOMITING, HEADACHE AND PAIN 5-8/10 TO R SIDE, MEDICATED c PRN IV NAUSEA MEDS AND PO PAIN MEDS PER EMAR c GOOD EFFECT. PATIENT SHOWERED AND LINEN CHANGED TODAY. PATIENT REPORTS "I'M FEELING BETTER AND ABLE TO ATE HALF OF MY SANDWICH FROM [employer] THAT MY BROUGHT ME." R NEPHROSTOMY CONNECTED TO LEG BAG DRAINING ARIEL COLOR c TOTAL URINE OUTPUT OF 400 MLS AND VOIDED 400 MLS OF URINE. RECEIVED IV ABX. VITAL SIGNS REVIEWED. PATIENT HAS BEEN AMBULATING IN ROOM INDPENDENTLY T/O SHIFT. SPOUSE AT BEDSIDE ON AND OFF T/O THE DAY. PIV TO LAC SALINE LOCKED. CALL LIGHT IN REACH.
[2023-07-31 19:31] VITALS: BP 114/71
[2023-08-01 04:46] LABS: Hematocrit 28.9 % (33.0-51.0); Mean Corpuscular HGB 30.2 pg (26.0-34.0); Mean Corpuscular HGB Conc 34.6 g/dL (31.5-36.5); Mean Corpuscular Volume 87 fL (80-100); Mean Platelet Volume 10.8 fL (9.1-12.4); Platelet Count 174 K/mm3 (150-400); RDW Coefficient Variation 12.1 % (11.7-14.2); Red Blood Cell Count 3.31 M/mm3 (3.80-5.20); White Blood Cell Count 12.67 K/mm3 (4.00-11.30)
--- NOTE | 2023-08-01 04:49 | NUR ---
SHIFT SUMMARY PATIENT A/Ox4, PLEASANT, COOPERATIVE. SPOUSE AT BEDSIDE OFF AND ON. PAIN MANAGEAGED WELL WITH PRNs PER eMAR. VSS, SPO2 WNL ON RA, AFEBRILE. CONTINUES ON IV Abx THERAPY WITHOUT ANY IMMEDIATE ASE NOTED. PATIENT IS INDEPENDANT IN ROOM. RIGHT NEPHROSTOMY IN PLACE WITH ADEQUATE OUTPUT, CLEAR YELLOW URINE. NO ACUTE CHANGES NOTED OVERNIGHT. BED IN LOWEST POSITION, CALL LIGHT WITHIN REACH.
[2023-08-01 05:11] LABS: Bun/Creatinine Ratio 11.8 (12.0-20.0); Calcium, Blood 8.3 mg/dL (8.5-10.1); Creatinine, Blood 0.85 mg/dL (0.40-1.00); Potassium, Blood 3.5 mmol/L (3.5-5.5)
[2023-08-01 06:31] VITALS: BP 108/67
[2023-08-01 08:12] VITALS: BP 119/65
[2023-08-01 15:43] VITALS: BP 101/56
--- NOTE | 2023-08-01 18:20 | NUR ---
SHIFT SUMMARY- PT HAS HAD NO ACUTE ISSUES T/O THE SHIFT. PAIN MANAGEMENT SEEMS TO BE THE BIGGEST ISSUE. PT MEDICATED Q4 T/O THE SHIFT. PT HAS A NEPHROSTOMY, DRAINING CLEAR YELLOW URINE. PT HAS BEEN EMPTYING INTO A URINAL WRITING THE MEASUREMENT ON THE BOARD AND EMPTYING HER OWN URINAL. PT ALERT, ORIENTED AND INDEPENDENT. IV WENT BAD AND WAS REPLACED TODAY. PT IN BED, CALL LIGHT IN REACH NO S&S OF DISTRESS NOTED.
[2023-08-01 19:55] VITALS: BP 109/68
[2023-08-02 03:25] VITALS: BP 118/68
--- NOTE | 2023-08-02 03:53 | NUR ---
SHIFT SUMMARY KENYA IS ALERT, FULLY ORIENTED, AND INDEPENDENT IN THE ROOM. HER BOYFRIEND STAYED WITH HER THOUGH THE NIGHT. PT HAD NO ACUTE CHANGES OVERNIGHT, ANY ONLY COMPLAINS OF NAUSEA AND FLANK PAIN, MEDICATED PER EMAR FOR BOTH OF THESE. SHE IS CURRENTLY RESTING IN BED WITH HER PARTNER IN A LOW POSITION WITH A CALL LIGHT IN REACH.
[2023-08-02 05:09] LABS: BASOPHILS ABSOLUTE AUTO 0.05 K/mm3 (0.00-0.23); BASOPHILS PERCENT AUTO 0 % (0-2); EOSINOPHILS ABSOLUTE AUTO 0.26 K/mm3 (0.00-0.68); EOSINOPHILS PERCENT AUTO 2 % (0-6); Hematocrit 29.8 % (33.0-51.0); Hemoglobin 10.1 g/dL (11.5-16.0); IMMATURE GRAN ABSOLUTE AUTO 0.05 K/mm3 (0.00-0.10); IMMATURE GRAN PERCENT AUTO 0 % (0-1); LYMPHOCYTES ABSOLUTE AUTO 1.44 K/mm3 (0.84-5.20); LYMPHOCYTES PERCENT AUTO 13 % (21-46); MONOCYTES ABSOLUTE AUTO 0.73 K/mm3 (0.16-1.47); MONOCYTES PERCENT AUTO 6 % (4-13); Mean Corpuscular HGB Conc 33.9 g/dL (31.5-36.5); Mean Corpuscular Volume 88 fL (80-100); Mean Platelet Volume 10.7 fL (9.1-12.4); NEUTROPHILS ABSOLUTE AUTO 8.91 K/mm3 (1.96-9.15); NEUTROPHILS PERCENT AUTO 78 % (41-73); Platelet Count 223 K/mm3 (150-400); RDW Coefficient Variation 12.2 % (11.7-14.2); RDW Standard Deviation 39.6 fL (35.1-46.3); Red Blood Cell Count 3.37 M/mm3 (3.80-5.20); White Blood Cell Count 11.44 K/mm3 (4.00-11.30)
[2023-08-02 05:34] LABS: Bun/Creatinine Ratio 8.2 (12.0-20.0); Calcium, Blood 8.2 mg/dL (8.5-10.1); Creatinine, Blood 0.85 mg/dL (0.40-1.00); Potassium, Blood 3.6 mmol/L (3.5-5.5)
[2023-08-02 07:33] VITALS: BP 118/76
[2023-08-02] MEDS ORDERED: LEVO750 PO (12:15)
--- NOTE | 2023-08-02 13:50 | NUR ---
PT DISCHARGED FROM THE UNIT. IV REMOVED. MEDICATIONS FAXED. DISCHARGE INSTRUCTIONS REVIEWED. GAVE HARD COPY OF PAIN MEDICATIONS. PT AMBULATED OFF THE UNIT.
== END 2023-08-02 13:12 | disposition home or self-care (01) | DRG 698 ==
LOC: ER 02:08 → MEDS 09:43
PROVIDERS: Hospitalist; Student in an Organized Health Care Education/Training Program; ADMIT Internal Medicine
DX: T83.512A Infection and inflammatory reaction due to nephrostomy catheter, initial encounter (principal); A41.9 Sepsis, unspecified organism; N10 Acute pyelonephritis; B96.5 Pseudomonas (aeruginosa) (mallei) (pseudomallei) as the cause of diseases classified elsewhere; N20.0 Calculus of kidney; R31.9 Hematuria, unspecified; Z87.442 Personal history of urinary calculi; Z98.890 Other specified postprocedural states; Z90.49 Acquired absence of other specified parts of digestive tract; Z98.51 Tubal ligation status; Z91.018 Allergy to other foods; Z79.2 Long term (current) use of antibiotics; Z79.899 Other long term (current) drug therapy; Z79.891 Long term (current) use of opiate analgesic; Z87.891 Personal history of nicotine dependence
CPT/HCPCS: 36415; 74177; 80048; 80053; 80069; 81001; 81025; 83605; 83735; 85025; 85027; 87077; 87086; 87186; 96361; 96365-59; 96375; 96376; 99285-25; A9270; J0696; J0744; J0780; J1170; J1885; J2405; J7030; J7050; Q9967

== ENCOUNTER → 2025-04-02 | Outpatient (CLI) | payer OTHER ==
[~2025-04-02] MED LIST changes: +LEVO750 PO
== END | disposition home or self-care (01) ==
LOC: LAB 15:30 → LAB SHORT 15:30
DX: N39.0 Urinary tract infection, site not specified (principal)
CPT/HCPCS: 87077; 87086; 87186